=== PATIENT | female | born 1995 | race Caucasian/White ===

== ENCOUNTER 2017-05-20 12:19 | Emergency (ER) | payer BC ==
[~2017-05-20] VITALS: Ht 162.6 cm; Wt 68.0 kg
[~2017-05-20 12:19] MED LIST: ACETAMINOPHEN-1 EAC1 PO; ANALPRAM E 2.51 EAC1 RC; BACTRIM DS TAB1 EACH; BIRTH CONTROL; CIPROFLOXACIN500 M1 PO; FLAGYL500 M1; HYDROCODON-ACE1 EAC7 PO; NAPROSYN500 MG PO; NOHOMEMEDICATIONS; TRAMADOL 50 MG50 MG PO; ULTRAM 50MG TAB50 MG PO
[2017-05-20 13:09] LABS: ABSOLUTE EOSINOPHILS 0.1 thou/uL (0.0-0.7); ABSOLUTE LYMPHOCYTES 3.4 thou/uL (0.8-5.3); ABSOLUTE MONOCYTES 0.7 thou/uL (0.0-1.2); ABSOLUTE NEUTROPHILS 5.1 thou/uL (1.6-8.1); BASOPHILS 0.5 %; EOSINOPHILS 1.2 %; HEMATOCRIT 45.1 % (37.0-47.0); HEMOGLOBIN 15.4 gm/dL (12.0-15.0); LYMPHOCYTES 36.4 %; MCH 31.1 pg (26.0-34.0); MCHC 34.2 g/dL (28.0-37.0); MONOCYTES 7.3 %; NUCLEATED RBCS 0 /100WBC; PLATELET COUNT* 269 thou/uL (150-400); POLYS 54.6 %; RBC 4.96 mil/uL (4.20-5.00); RDW-CV 13.2 % (10.5-14.5); WBC 9.3 thou/uL (4.0-11.0)
[2017-05-20 13:23] LABS: ANION GAP 6 mmol/L (7-16); BUN 13 mg/dL (7-18); CALCIUM 9.2 mg/dL (8.5-10.1); CHLORIDE 104 mmol/L (98-107); CO2 30 mmol/L (21-32); CREATININE 0.8 mg/dL (0.6-1.3); GLUCOSE 69 mg/dL (70-99); POTASSIUM 3.7 mmol/L (3.5-5.1); SODIUM 140 mmol/L (136-145)
[2017-05-20 13:32] LABS: AMP/METHAMP POSITIVE (Negative); BARBITURATES Negative (Negative); BENZODIAZEPINES Negative (Negative); COCAINE Negative (Negative); METHADONE Negative (Negative); OPIATES POSITIVE (Negative); PCP Negative (Negative); THC Negative (Negative)
[2017-05-20 13:34] LABS: ALBUMIN 4.3 g/dL (3.4-5.0); ALKALINE PHOSPHATASE 72 U/L (46-116); LIPASE 98 U/L (73-393); NT-PRO BRAIN NAT PEPTIDE 10 pg/mL (<300); SGOT 19 U/L (15-37); SGPT 21 U/L (30-65); TOTAL BILIRUBIN 0.5 mg/dL (<0.1-1.0); TOTAL PROTEIN 7.8 g/dL (6.4-8.2); TROPONIN-I LEVEL <0.06 ng/mL (<0.06)
[2017-05-20 13:46] VITALS: BP 122/56
--- NOTE | 2017-05-21 16:22 | EKG ---
[place] [address] ELECTROCARDIOGRAM REPORT Name: CALE VALIENTE Room: [facility]#: [id number] Admission: 05/20/17 Attend Phys: Discharge: 05/20/17 Date of : [birth year] Report #: [id number] THIS REPORT FOR: //name// [facility] ED Test Date: 2017-05-20 Test Time: 12:28:51 Pat Name: CALE VALIENTE Department: Room: Gender: F Senior Clerk: NIKI : 1995 Requested By: Ramon Sheriff Order Number: [id number] MD: Cheko Ceron Measurements Intervals [place] Rate: 100 P: 39 DC: 132 QRS: 92 QRSD: 98 T: 55 QT: 339 QTc: 438 Interpretive Statements Sinus tachycardia Borderline right axis deviation Borderline T wave abnormalities Compared to ECG 08/07/2011 09:28:27 T-wave abnormality now present Electronically Signed On 05-21-2017 16:22:25 [employer] by Cheko Ceron [email or web address] <ELECTRONICALLY SIGNED> By: Cheko Ceron MD, [facility] 05/21/17 1622 1228 1228 Cheko Ceron MD, FACC /EPI
== END 2017-05-20 13:47 | disposition home or self-care (01) ==
LOC: M.ERS 12:19
PROVIDERS: Emergency Medicine
DX: F15.10 Other stimulant abuse, uncomplicated (principal); R07.9 Chest pain, unspecified; F41.9 Anxiety disorder, unspecified; F32.9 Major depressive disorder, single episode, unspecified; F17.210 Nicotine dependence, cigarettes, uncomplicated; F12.10 Cannabis abuse, uncomplicated; Z90.89 Acquired absence of other organs

== ENCOUNTER 2021-06-19 10:32 | Emergency (ER) | payer OTHER, MEDICAID ==
[~2021-06-19] VITALS: Ht 162.6 cm; Wt 83.9 kg
[2021-06-19] MEDS ORDERED: METHADONE10 MG/1 M2 (10:44)
[2021-06-19 11:42] VITALS: BP 137/85
== END 2021-06-19 11:42 | disposition home or self-care (01) ==
LOC: M.ERS 10:32
DX: R51.9 Headache, unspecified (principal); H53.149 Visual discomfort, unspecified; R11.0 Nausea; F32.9 Major depressive disorder, single episode, unspecified; F41.9 Anxiety disorder, unspecified; F17.210 Nicotine dependence, cigarettes, uncomplicated; Z96.22 Myringotomy tube(s) status; Z79.899 Other long term (current) drug therapy